=== PATIENT | male | born 1940 | race African-American/Black ===

== ENCOUNTER 2016-12-17 10:05 | Emergency (ER) | payer OTHER ==
[~2016-12-17] VITALS: Ht 185.4 cm; Wt 82.0 kg
[2016-12-17] MEDS ORDERED: [UNRECOGNIZED DRUG - REMARK] (10:15)
[2016-12-17] MEDS ORDERED: [UNRECOGNIZED DRUG - REMARK] (10:15)
[2016-12-17] MEDS ORDERED: SODIUM CHLORIDE 0.9% 1,000 ML IV ONE ×3 (10:23→16:18)
[2016-12-17 10:48] LABS: BASOPHILS % 0.9 % (0.0-2.0); EOSINOPHILS % 0.9 % (0.0-5.0); HEMATOCRIT. 38.2 % (42.0-52.0); HEMOGLOBIN. 12.5 g/dL (14.0-18.0); LYMPHOCYTES % 19.3 % (20.0-50.0); MEAN CORPUSCULAR HEMOGLOBIN 29.2 pg (28.0-32.0); MEAN CORPUSCULAR VOLUME 89.4 fL (80.0-94.0); MEAN PLATELET VOLUME 8.1 fl (7.4-10.4); MONOCYTES % 8.1 % (2.0-8.0); NEUTROPHILS % 70.8 % (40.0-76.0); PLATELET 100 x1000/uL (130-400); RED BLOOD CELL COUNT 4.28 mill/uL (4.7-6.1); RED CELL DISTRIBUTION WIDTH 13.1 % (11.6-14.6)
[2016-12-17 10:57] LABS: INR 1.2; PROTHROMBIN TIME 12.1 sec (9.4-11.6)
[2016-12-17 11:04] LABS: CARBON DIOXIDE 26 mEq/L (21-32); CHLORIDE 110 mEq/L (98-107)
[2016-12-17 12:22] LABS: CLARITY URINE CLEAR (CLEAR); COLOR URINE YELLOW (YELLOW); GLUCOSE URINE NEGATIVE (NEGATIVE); KETONES URINE TRACE (NEGATIVE); LEUKOCYTE ESTERASE URINE NEGATIVE (NEGATIVE); NITRITE URINE NEGATIVE (NEGATIVE); OCCULT BLOOD URINE 1+ (NEGATIVE); PH URINE 5.5 (4.5-8.0); PROTEIN URINE 2+ (NEGATIVE); SPECIFIC GRAVITY URINE 1.024 (1.005-1.030); UROBILINOGEN URINE 0.2 E.U./dL (0.2-1.0)
[2016-12-17 17:26] VITALS: BP 132/56
== END 2016-12-17 17:51 | disposition short-term general hospital (02) ==
LOC: ER 11:22 → CANBEDREQ 16:35 → ER 17:51
DX: R74.0 Nonspecific elevation of levels of transaminase and lactic acid dehydrogenase [LDH] (principal); R53.1 Weakness; E78.00 Pure hypercholesterolemia, unspecified
CPT/HCPCS: 36415; 71010; 80053; 81001; 83605; 84484; 85025; 85610; 87040; 87086; 93005; 96360; 96361; 99285; J7030